=== PATIENT | female | born 1950 | race Caucasian/White ===

== ENCOUNTER → 2018-09-23 | Outpatient (CLI) | payer MEDICARE ==
[~2018-09-23] MED LIST: AMIODARONE HCL200 MG PO; ASPIR 8181 MG PO; CEFDINIR300 MG PO; CLONIDINE HCL0.1 MG PO; HEMATINIC-FOLI1 EACH; HEMOCYTE PLUS1 EACH PO; LISINOPRIL10 MG PO; LISINOPRIL5 MG PO; METOPROLOL TART25 MG PO; OMEPRAZOLE40 MG PO; PREDNISONE20 MG PO; PROAIR HFA INH8.5 GM PO; XARELTO20 MG PO
--- NOTE | 2018-09-23 11:57 | Diagnostic Imaging Report ---
ADDENDUM #1 Addendum: Comparison is made to CT scan of the chest without contrast performed 01/14/2016. Images for the CT scan of the chest without contrast performed 11/08/2016 are unavailable and cannot be recovered due to [facility] systemwide data loss from this time period. The report for the examination from 11/08/2016 was available for review. 8 mm right middle lobe nodule seen on series 3, image 77 is unchanged relative to the examination from 01/14/2016 when accounting for differences in slice selection. 20 mm wedge-shaped opacity seen on series 3 image 85 is new compared to the examination from 2016. 7 mm nodular opacity in the right middle lobe along the fissure seen on image 86 is new compared to the examination from 2016. These nodules were also not described on the report from the examination from 2017. 5 mm juxtapleural right lower lobe nodule seen on series 3 image 90 is new compared to the examination from 2016. 3 mm nodule in the right lower lobe seen on series 3 image 69 has decreased in size relative to 2016. 4 mm nodule in the right lower lobe seen on series 3 image 49 has also decreased in size relative to 2016. Lingular nodular density measuring 12 x 5 mm seen on series 3 image 73 has decreased in size relative to 2016. 4 mm nodule along the left hemidiaphragm seen on series 3 image 84 was not identified on the 2016 examination, though this may relate to slice selection. 4 mm juxtadiaphragmatic nodule seen on series 3 image 91 and was also not identified and 2016, again, possibly related to slice selection. As recommended on the previous impression, a 3 month follow-up CT scan of the chest without contrast would be of benefit to assess for interval resolution of the new right middle lobe nodular and wedge-shaped opacities, likely infectious or inflammatory in nature, as well as to assess for stability of several new pulmonary nodules, not identified on the examination from 2016, nor mentioned in the report for the examination performed 11/08/2016. Signed by: Dr. Vernon Lorenz M.D. on 09/24/2018 9:22 AM ORIGINAL REPORT EXAM: CT Chest WITHOUT contrast INDICATION: Smoker, COPD, previous nodule COMPARISON: None currently available. TECHNIQUE: The Chest was scanned utilizing a multidetector helical scanner without the use of IV contrast. Coronal and sagittal reformations were obtained. IV CONTRAST: None COMPLICATIONS: None RADIATION DOSE: Total DLP: 192 mGy*cm Estimated effective dose: (DLP x 0.015 x size factor) mSv CTDIvol has been reviewed. It is below the limits set by the Radiation Protocol Committee (RPC). Appropriate CT dose reduction techniques were utilized. FINDINGS: Lines and Tubes: Left chest wall ICD with leads terminating right atrial appendage and right ventricular apex. Lower Neck: Heterogeneous thyroid gland with 8 mm nodule right lobe. Heart and Great Vessels: The aorta and main pulmonary artery measure 34 and 29 mm. respectively. No pericardial effusion. Moderate coronary artery vascular calcifications and aortic vascular calcifications. Descending thoracic aorta is tortuous. Lymph Nodes: Small scattered mediastinal lymph nodes not distinctly enlarged by size criteria. The hilar regions are sub-optimally evaluated given lack of IV contrast. Lungs: No pleural effusion or pneumothorax. There is moderate biapical scarring and advanced predominantly centrilobular emphysematous changes. Trachea and central bronchi are unremarkable except for minimal mucus. Right: Scattered nodular and groundglass opacities are present in the right middle lobe. More distinct nodules include 8 mm series 3 image 77, 20 mm image 85, 7 mm image 86. In the right lower lobe there is a 5 mm pleural nodule series 3 image 90, 3 mm nodule image 69, and 4 mm nodule image 49. Left: There is mild volume loss in the left upper lobe with subtle scattered groundglass opacities. Linear and nodular densities are present with more nodular density measuring 12 x 5 mm series 3 image 73. Ill-defined groundglass nodular density left lower lobe series 3 image 66 measures 8 mm, but is linear in configuration sagittal image 104 suggesting scarring. 5 mm nodule left lower lobe image 84 and 4 mm nodule image 91. Subtle opacity which is somewhat nodular in configuration images 91 through 95 may represent area of scarring. Upper abdomen: Increased density of the liver. Moderate vascular calcifications. Moderate sized hiatal hernia. Bones and Soft Tissues: Demineralization with multiple compression deformities and vertebroplasty changes. IMPRESSION: 1. Advanced centrilobular emphysematous changes. Multiple scattered pulmonary nodules are present as detailed above, with no comparisons available. [address] follow-up. 2. Groundglass opacities with superimposed nodular densities in the right middle lobe may represent an acute infectious/inflammatory process. [address] follow-up. 3. Thyroid nodule. Dedicated ultrasound recommended. 4. Moderate hiatal hernia. 5. Increased density of the liver likely secondary to amiodarone. 6. Moderate coronary artery and aortic calcifications poorly evaluated given lack of IV contrast. Signed by: Dr. Zachary Rios MD on 09/23/2018 11:53 AM
== END ==
LOC: CT 09:55
PROVIDERS: ATTEND Internal Medicine Critical Care Medicine
DX: R91.8 Other nonspecific abnormal finding of lung field (principal)
CPT/HCPCS: 71250